=== PATIENT | female | born 1975 | race Caucasian/White ===

== ENCOUNTER 2017-06-03 08:56 | Emergency (ER) | payer OTHER ==
[2017-06-03 09:00] VITALS: BP 145/87; PULSE 85; BMI 25.6
--- NOTE | 2017-06-03 09:41 | PDOC ---
History of Present Illness - General Chief Complaint: Urinary Problem Stated Complaint: BLOOD IN URINE Time Seen by Provider: 06/03/17 09:17 History Source: Patient, Spouse Exam Limitations: No Limitations - History of Present Illness Travel History: No Initial Comments: 06/03/17 09:37 Patient here with with complaints of pain, frequency, burning, and this morning hematuria since yesterday. No fevers chills nausea or vomiting. No other symptoms. Timing/Duration: reports: getting worse Quality: reports: mild, moderate, stabbing Abdominal Pain Onset Location: reports: suprapubic, generalized abdomen Pain Radiation: reports: no radiation Activities at Onset: reports: none Alleviating Factors: improves with: None Past History - Travel Traveled outside of the country in the last 30 days: No Close contact w/someone who was outside of country & ill: No - Past Medical History Allergies/Adverse Reactions: Allergies Allergy/AdvReac Type Severity Reaction Status Date / Time EPIDURAL INJECTION Allergy Itching Uncoded 06/03/17 09:02 Home Medications: Ambulatory Orders Cefdinir [Omnicef -] 300 mg PO BID #10 capsule 06/03/17 Anemia: Yes - Psycho/Social/Smoking Cessation Hx Anxiety: No Suicidal Ideation: No Smoking History: Never smoked Hx Alcohol Use: No Drug/Substance Use Hx: No Substance Use Type: None Review of Systems - Review of Systems Able to Perform ROS?: Yes Is the patient limited [place] proficient: Yes Constitutional: Yes: Symptoms Reported, See HPI, Malaise. No: Fever HEENTM: Yes: See HPI. No: Symptoms Reported : Yes: Symptoms Reported, See HPI, Burning, Dysuria, Hematuria Musculoskeletal: No: Symptoms Reported All Other Systems: Reviewed and Negative *Physical Exam - Vital Signs Last Vital Signs Temp Pulse Resp BP Pulse Ox 85 20 145/87 100 06/03/17 08:58 06/03/17 08:58 06/03/17 08:58 06/03/17 08:58 - Physical Exam General Appearance: Yes: Nourished, Appropriately Dressed, Apparent Distress, Mild Distress HEENT: positive: DOMINGO, Normal ENT Inspection, Normal Voice, TMs Normal, Pharynx Normal Neck: positive: Supple. negative: Lymphadenopathy (R), Lymphadenopathy (L) Cardiovascular: positive: Regular Rhythm Gastrointestinal/Abdominal: positive: Normal Bowel Sounds, Tender (mild suprapubic tenderness, no rebound or guarding), Soft. negative: Distended, Guarding, Rebound, Tenderness Musculoskeletal: positive: Normal Inspection. negative: CVA Tenderness Extremity: positive: Normal Capillary Refill, Normal Inspection Integumentary: positive: Normal Color, Dry, Warm, Pale Neurologic: positive: template clerk II-XII NML intact, Fully Oriented, Alert, Normal Mood/ Affect, Normal Response, Motor Strength 5/5 Progress Note - Progress Note Progress Note: Urinary tract infection, will treat with cefdinir by mouth *DC/Admit/Observation/Transfer Diagnosis at time of Disposition: Urinary tract infection Qualifiers: Urinary tract infection type: acute cystitis Hematuria presence: with hematuria Qualified Code(s): N30.01 - Acute cystitis with hematuria - Discharge Dispostion Disposition: HOME Condition at time of disposition: Stable Admit: No - Prescriptions Prescriptions: Cefdinir [Omnicef -] 300 mg PO BID #10 capsule - Patient Instructions Printed Discharge Instructions: DI for Urinary Tract Infection (UTI) Additional Instructions: Rest, drink lots of fluids: Teas, water, soups Avoid contact with others until fevers and symptoms resolved Lots of handwashing and good hygiene Continue [id number] medications for symptomatic relief Tylenol or Motrin for fever and pain Continue all of antibiotics until completed Followup with private physician in one week for repeat urinalysis/reevaluation Return to emergency department for worsened symptoms, fevers, dehydration - Post Discharge Activity Work/School Note: Back to Work
[2017-06-03 09:55] LABS: URINE APPEARANCE SLCLOUDY; URINE BILIRUBIN NEGATIVE (NEGATIVE); URINE BLOOD 3+ (NEGATIVE); URINE COLOR RED; URINE GLUCOSE (UA) NEGATIVE (NEGATIVE); URINE KETONE NEGATIVE (NEGATIVE); URINE NITRITE NEGATIVE (NEGATIVE); URINE UROBILINOGEN NEGATIVE mg/dL (0.2-1.0)
[2017-06-03 10:05] LABS: URINE LEUK ESTERASE 3+ (NEGATIVE); URINE PROTEIN 1+ (NEGATIVE)
[2017-06-03 10:08] LABS: URINE BACTERIA RARE /hpf (NONE SEEN); URINE RBC 515 /hpf (0-3); URINE WBC 144 /hpf (3-5)
== END 2017-06-03 10:20 | disposition home or self-care (01) ==
LOC: JERFT 08:56
DX: N30.01 Acute cystitis with hematuria (principal)
CPT/HCPCS: 81003; 81015; 84703; 87086; 87186; 99281-25